=== PATIENT | female | born 1990 | race African-American/Black ===

== ENCOUNTER → 2018-05-26 | Outpatient (CLI) | payer OTHER ==
--- NOTE | 2018-05-27 08:00 | RAD ---
Pelvic ultrasound, 05/26/2018: HISTORY: Pelvic mass Transabdominal and transvaginal scans were obtained. The uterus measures 7.4 x 4.0 x 3.5 cm. A normal central uterine echo complex is evident measuring 5 mm in AP dimension. The right ovary measures 4.0 x 2.1 x 1.9 cm. It contains small follicular cysts. There is blood flow in the right ovary. The left ovary measures 4.7 x 2.0 x 1.8 cm. It contains a 2.3 cm simple cyst. There is an additional 3.3 cm slightly hyperechoic nodule in the left ovary. Its internal echoes are heterogeneous. No definite internal color flow is seen. There is blood flow in the left ovary. The adnexal regions are otherwise unremarkable. No significant free fluid is evident in the pelvis. IMPRESSION: 1. Small left ovarian cyst. 2. Additional small hyperechoic left ovarian mass. This could be a hemorrhagic cyst or a solid neoplasm. Sonographic follow-up is suggested. Electronically signed by: Dk Silver MD (05/27/2018 7:56 AM) [facility]
== END | disposition home or self-care (01) ==
LOC: EDBD 16:40 → US 16:40
PROVIDERS: ATTEND Specialist
DX: N83.202 Unspecified ovarian cyst, left side (principal)
CPT/HCPCS: 76856